=== PATIENT | female | born 1995 | race Caucasian/White ===

== ENCOUNTER 2017-01-18 15:14 | Emergency (ER) | payer BC ==
[~2017-01-18] VITALS: Ht 162.6 cm; Wt 68.7 kg
[2017-01-18 15:21] VITALS: Ht 162.6 cm; Wt 68.7 kg
[2017-01-18] MEDS ORDERED: SODIUM CHLORIDE 0.9% 1000ML 1,000 ML IV STA (15:28)
[2017-01-18] MEDS ORDERED: ONDANSETRON INJ 2 MG/ML 2 ML VIAL IV STA (15:28)
[2017-01-18] MEDS ORDERED: FENTANYL CITRATE INJ 50 MCG/1 ML 2 ML VIAL IV STA ×2 (15:28→16:34)
--- NOTE | 2017-01-18 16:02 | EMERGENCY ROOM VISIT NOTE ---
ED Visit Note First contact with patient: 15:20 CHIEF COMPLAINT: Right Shoulder pain HISTORY OF PRESENT ILLNESS: This 21-year-old female patient presents to the emergency department, S, complaining of pain in the right shoulder. The patient states she was dancing, practicing a routine, when she swung her right arm around, and felt a tearing sensation in her right shoulder. The patient states last year, she was seen by [facility] just diagnosed with a partial tear in her shoulder. She states she went home, and her brother, who is a physician looked at it, but she never followed up with orthopedics. She denies any previous history of shoulder dislocations. The patient reports discomfort in the anterior shoulder, radiating down the arm towards the elbow. She describes the pain as sharp and throbbing, and rates it 7/10. The patient has taken nothing for pain. There is limitation of motion of the arm and shoulder because of the dislocation and pain. The pain is moderate, constant and increases with motion of the hand and arm. No numbness or tingling. No neck or back pain. No chest pain or shortness of breath. No abdominal pain or nausea/vomiting. No cough. REVIEW OF SYSTEMS: A 6 system review of systems was performed with positives and pertinent negatives in the HPI. ALLERGIES: Adhesives MEDICATIONS: Zofran when necessary PMH: Cyclic vomiting syndrome SOCIAL HISTORY: The patient is a [employer]. She lives locally with her remain. The patient denies drug, tobacco use. The patient admits to occasional alcohol use. PHYSICAL EXAM: Vital Signs: Reviewed nurse's notes, vital signs stable. GENERAL : This is a 21-year-old, otherwise healthy female, in no acute distress, but appears to be in pain, well-developed, well-nourished. SKIN: The patient is initially pale, diaphoretic, and cool to the touch. MUSCULOSKELETAL: There is apparent anterior dislocation of the right humeral head. There are otherwise no tesha deformities noted. There is tenderness over the shoulder joint, worse on the anterior aspect. The patient's range of motion is completely limited due to dislocation and pain. Supraspinatus strength 1/5 prereduction. There is no clavicle tenderness. No tenderness of the humerus, elbow, wrist, or hand. Jewelry Setter strength 5/5. Radial pulse 2+. NECK: No tenderness to palpation over the cervical spine. HEART: Regular rate and rhythm without murmurs gallops or rubs. LUNGS: Clear to auscultation bilaterally without wheezes, rales or rhonchi. No accessory muscle use. No retractions. NEURO: The patient is alert and oriented to person, place, and time. Normal sensation to light and sharp touch. Capillary refill less than 2 seconds. RADIOLOGY: X-Ray Right Shoulder: FINDINGS: Right anterior shoulder dislocation. Possible Hill-Sachs impaction fracture. The right clavicle is intact. Soft tissues are unremarkable. No radiopaque foreign bodies. IMPRESSION: Right anterior shoulder dislocation with a possible Hill-Sachs impaction fracture. Post-Reduction X-Ray Right Shoulder: FINDINGS: Status post reduction of the right shoulder dislocation. Alignment is anatomic. The right clavicle is intact. Suspect a small Hill-Sachs impaction fracture. Soft tissues are unremarkable. No radiopaque foreign bodies. IMPRESSION: Status post reduction of the right shoulder dislocation. The alignment is anatomic. Suspect a small Hill-Sachs impaction fracture. EMERGENCY DEPARTMENT COURSE: I examined the patient. The patient was given 1 L normal saline solution, 4mg Zofran, and 50 g of fentanyl via IV. An X-ray of the right shoulder was reviewed by myself and radiologist and shows anterior dislocation of the right shoulder with possible Hill-Sachs impaction fracture. I discussed these findings with the patient at bedside. She was given a repeat dose of fentanyl 50 g IV. The patient was placed in a prone position with her right shoulder hanging off the bed. Her arm was supinated with gentle traction applied. The shoulder did immediately reduce back into place without any difficulty. A postreduction x-ray was ordered. The patient was placed in an arm sling. The patient was feeling significantly better at discharge. She was discharged home in good condition with instructions to follow up with orthopedics on Thursday. DIFFERENTIAL DIAGNOSIS: Shoulder contusion, shoulder separation, shoulder dislocation, rotator cuff tear, and others DIAGNOSIS: Shoulder dislocation DISCHARGE INSTRUCTIONS & TREATMENT: ORTHOPEDIC INSTRUCTIONS: DO NOT drive, drink alcohol, operate machinery, or perform dangerous activities today. You were given medications in the ER that can affect your ability to safely function or operate a vehicle. Oxycodone (OxyIR) 5mg: Take 1-2 pills every four hours as needed for breakthrough pain. Avoid alcohol, operating machinery or dangerous equipment, working on ladders or roofs, DRIVING, or situations where being under the influence may be dangerous. It is recommended to use an kcbw-xfs-dtyfelc stool softener such as Colace, 100mg twice daily while taking this medication to avoid constipation. Ibuprofen(Motrin, Advil) may be used for fever or pain. Use 600mg every six hours as needed. Take with food. Avoid using more than 2400mg in a 24 hour period. Do not use 2400mg per day for more than three consecutive days without physician direction. Prolonged inappropriate use can lead to stomach upset or ulcers. (AND/OR) Acetaminophen(Tylenol) may be used for fever or pain. Use 1000mg every six hours as needed. Avoid using more than 3000mg in a 24 hour period. Ice compresses for 20 minutes at a time four times daily for 2-3 days. Use the sling as instructed. Keep your arm in the sling until you follow-up with orthopedics. Remove your arm from the sling 4-6 times a day and move all the joints around to keep them loose. Rest and elevate your injury. Return to the ER immediately for any numbness, tingling, severe pain, extreme swelling in the extremity or as needed. Call [facility], [phone], on Thursday to arrange follow up for your injury. Follow-up with your primary care physician in 2 to 3 days for a recheck of your current condition. Current/Historical Medications Scheduled PRN Oxycodone Ir (Roxicodone Ir), 1 TAB PO Q4-6H PRN for Pain Allergies Coded Allergies: Adhesives (Verified Allergy, Mild, HIVES, 06/16/15) "i get hives and get itchy" Vital Signs Date Time Temp Pulse Resp B/P (MAP) Pulse Ox O2 Delivery O2 Flow Rate FiO2 01/18/17 18:28 92 14 114/85 97 01/18/17 16:46 01/18/17 16:45 80 131/ 99 Room Air 01/18/17 15:43 73 01/18/17 15:21 115 22 107/80 98 Room Air Medications Administered Medications (Trade) Dose Ordered Sig/Betty Route Start Time Stop Time Status Last Admin Dose Admin Ondansetron HCl (Zofran Inj) 4 mg NOW STAT IV 01/18/17 15:28 01/18/17 15:29 DC 01/18/17 15:39 4 MG Sodium Chloride 1,000 ml @ 999 mls/hr Q1H1M STAT IV 01/18/17 15:28 01/18/17 16:28 DC 01/18/17 15:39 999 MLS/HR Fentanyl Citrate (Fentanyl Inj) 50 mcg NOW STAT IV 01/18/17 15:28 01/18/17 15:29 DC 01/18/17 15:38 50 MCG Fentanyl Citrate (Fentanyl Inj) 50 mcg NOW STAT IV 01/18/17 16:34 01/18/17 16:35 DC 01/18/17 16:44 50 MCG Departure Information Impression Primary Impression: Anterior shoulder dislocation Dispostion Home / Self-Care Condition GOOD Prescriptions Oxycodone Ir (Roxicodone Ir) 5 Mg Tab 1 TAB PO Q4-6H Y for Pain, #12 TAB For Initial Treatment Prov: Gia Brunner PA-C 01/18/17 Referrals [facility] (PCP) Luis Barbosa MD Patient Instructions ED Dislocation Shoulder Redu, My [facility] Additional Instructions ORTHOPEDIC INSTRUCTIONS: DO NOT drive, drink alcohol, operate machinery, or perform dangerous activities today. You were given medications in the ER that can affect your ability to safely function or operate a vehicle. Oxycodone (OxyIR) 5mg: Take 1-2 pills every four hours as needed for breakthrough pain. Avoid alcohol, operating machinery or dangerous equipment, working on ladders or roofs, DRIVING, or situations where being under the influence may be dangerous. It is recommended to use an dyhl-kxn-npuguww stool softener such as Colace, 100mg twice daily while taking this medication to avoid constipation. Ibuprofen(Motrin, Advil) may be used for fever or pain. Use 600mg every six hours as needed. Take with food. Avoid using more than 2400mg in a 24 hour period. Do not use 2400mg per day for more than three consecutive days without physician direction. Prolonged inappropriate use can lead to stomach upset or ulcers. (AND/OR) Acetaminophen(Tylenol) may be used for fever or pain. Use 1000mg every six hours as needed. Avoid using more than 3000mg in a 24 hour period. Ice compresses for 20 minutes at a time four times daily for 2-3 days. Use the sling as instructed. Remove your arm from the sling 4-6 times a day and move all the joints around to keep them loose. Rest and elevate your injury. Return to the ER immediately for any numbness, tingling, severe pain, extreme swelling in the extremity or as needed. Call [facility], [phone], on Thursday to arrange follow up for your injury. Follow-up with your primary care physician in 2 to 3 days for a recheck of your current condition. Problem Qualifiers Primary Impression: Anterior shoulder dislocation Encounter type: initial encounter Laterality: right Qualified Codes: S43.014A - Anterior dislocation of right humerus, initial encounter
--- NOTE | 2017-01-18 16:24 | DIAGNOSTIC IMAGING REPORT ---
RIGHT SHOULDER 2 VIEWS HISTORY: right shoulder pain, possible dislocation Right COMPARISON: None. FINDINGS: Right anterior shoulder dislocation. Possible Hill-Sachs impaction fracture. The right clavicle is intact. Soft tissues are unremarkable. No radiopaque foreign bodies. IMPRESSION: Right anterior shoulder dislocation with a possible Hill-Sachs impaction fracture. Electronically signed by: Mayito Arriaza M.D. 01/18/2017 4:23 PM Dictated Date/Time: 01/18/2017 4:22 PM
[2017-01-18] MEDS ORDERED: OXYC1TAB3 PO (16:55)
--- NOTE | 2017-01-18 17:53 | DIAGNOSTIC IMAGING REPORT ---
RIGHT SHOULDER 2 VIEWS HISTORY: post-reduction Right COMPARISON: Right shoulder 01/18/2017. FINDINGS: Status post reduction of the right shoulder dislocation. Alignment is anatomic. The right clavicle is intact. Suspect a small Hill-Sachs impaction fracture. Soft tissues are unremarkable. No radiopaque foreign bodies. IMPRESSION: Status post reduction of the right shoulder dislocation. The alignment is anatomic. Suspect a small Hill-Sachs impaction fracture. Electronically signed by: Mayito Arriaza M.D. 01/18/2017 5:51 PM Dictated Date/Time: 01/18/2017 5:50 PM
[2017-01-18 18:28] VITALS: BP 114/85; PULSE 92; O2SAT 97
== END 2017-01-18 18:15 | disposition home or self-care (01) ==
LOC: EDBD 15:14 → C.EDA 15:18
DX: S43.014A Anterior dislocation of right humerus, initial encounter (principal); X58.XXXA Exposure to other specified factors, initial encounter; Y93.41 Activity, dancing

== ENCOUNTER → 2017-01-23 | Outpatient (CLI) | payer BC ==
[~2017-01-23] MED LIST: OXYC1TAB3 PO
== END | disposition home or self-care (01) ==
LOC: C.RDSM 13:10
PROVIDERS: ATTEND Physical Medicine & Rehabilitation Sports Medicine
DX: S43.014A Anterior dislocation of right humerus, initial encounter (principal); X58.XXXA Exposure to other specified factors, initial encounter

== ENCOUNTER 2017-03-08 23:00 | Emergency (ER) | payer BC ==
[~2017-03-08] VITALS: Ht 162.6 cm; Wt 58.1 kg
[2017-03-08 23:03] VITALS: TEMP 37; Ht 162.6 cm; Wt 58.1 kg
[2017-03-08] MEDS ORDERED: LORAZEPAM 1 MG TAB SL STA (23:11)
--- NOTE | 2017-03-08 23:33 | EMERGENCY ROOM VISIT NOTE ---
History Report prepared by Scribe: Tayler Bueno Under the Supervision of: Dr. Presley Bullard M.D. First contact with patient: 23:09 Chief Complaint: SHOULDER DISLOCATION Stated Complaint: DISLOCATED RT SHOULDER History of Present Illness The patient is a 21 year old female who presents to the Emergency Room with complaints of dislocated right shoulder occurring 15 minutes ago. The patient states that this is the second time her right shoulder has been dislocated. She notes that she was dancing when she swung her arm and it popped out of socket. The patient states she is nauseous. Source of History: patient Onset: 15 minutes ago Position: shoulder (right) Quality: other (dislocation) Associated Symptoms: + nausea Review of Systems See HPI for pertinent positives and negatives. A total of ten systems were reviewed and were otherwise negative. Family History No pertinent family history stated. Social History Smoking Status: Never Smoker Occupation Status: [employer] Current/Historical Medications No Active Prescriptions or Reported Meds Allergies Coded Allergies: Adhesives (Verified Allergy, Mild, HIVES, 03/08/17) "i get hives and get itchy" Physical Exam Vital Signs Date Time Temp Pulse Resp B/P (MAP) Pulse Ox O2 Delivery O2 Flow Rate FiO2 03/09/17 01:34 78 18 106/66 98 03/09/17 00:41 69 18 107/71 99 Room Air 03/08/17 23:03 37.0 69 18 113/78 99 Room Air Physical Exam GENERAL: Awake, alert, uncomfortable-appearing, in no distress HENT: Normocephalic, atraumatic. Oropharynx unremarkable. EYES: Normal conjunctiva. Sclera non-icteric. NECK: Supple. No nuchal rigidity. FROM. No JVD. RESPIRATORY: Clear to auscultation. CARDIAC: Regular rate, normal rhythm. Extremities warm and well perfused. Pulses equal. ABDOMEN: Soft, non-distended. No tenderness to palpation. No rebound or guarding. No masses. RECTAL: Deferred. MUSCULOSKELETAL: Deformed right shoulder with anterior deformity, axillary nerve intact, distal PMS intact. The back is symmetrical on inspection without obvious abnormality. There is no CVA tenderness to palpation. No joint edema. LOWER EXTREMITIES: Calves are equal size bilaterally and non-tender. No edema. No discoloration. NEURO: Normal sensorium. No sensory or motor deficits noted. SKIN: No rash or jaundice noted. Medical Decision & Procedures ER Provider Diagnostic Interpretation: Radiology results as stated below per my review and radiologist interpretation: Shoulder XRAY: normal alignment Medications Administered Medications (Trade) Dose Ordered Sig/Betty Route Start Time Stop Time Status Last Admin Dose Admin Lorazepam (Ativan Tab) 1 mg NOW STAT SL 03/08/17 23:11 03/08/17 23:12 DC 03/08/17 23:14 1 MG Ondansetron HCl (Zofran Odt) 4 mg ONE ONCE PO 03/08/17 23:45 03/08/17 23:46 DC 03/08/17 23:37 4 MG Procedure Shoulder reduction: Verbal consent obtained after explaining risks and benefits. Pre-treatment with oral dose of ativan. Successful reduction with Link technique with scapular manipulation. Post-procedure axillary n. and distal PMS intact. No complications. Post-reduction xray with normal alignment. ED Course 2311: Ativan Tab SL 2314: The patient was evaluated in room A3. A complete history and physical exam was performed. 2325: Bedside shoulder relocation. 2345: Zofran Odt 4 mg PO. 0124: I reevaluated the patient. Discussed results and discharge instructions: She verbalized understanding and agreement. The patient is ready for discharge. Medical Decision I reviewed the patient's past medical history, medications, and the nursing notes as described above. Differential diagnosis: shoulder dislocation The patient is a 21 y/o woman with a pmhx of prior right shoulder injury and prior right shoulder dislocation presents to the ED with right shoulder deformity c/w anterior dislocation when waving her arm when performing a dance routine per HPI. On arrival the patient is well appearing, in NAD, AFVSS. Axillary nerve intact and distal pms intact. Shoulder successfully reduced with Link technique with scapluar manipulation. Post reduction film with normal alignment. Findings and plan for follow-up reviewed with patient. Patient agreeable and d/c'd per discharge instructions. Medication Reconcilliation Current Medication List: was personally reviewed by me Blood Pressure Screening Patient's blood pressure: Normal blood pressure Impression Primary Impression: Anterior shoulder dislocation Scribe Attestation The scribe's documentation has been prepared under my direction and personally reviewed by me in its entirety. I confirm that the note above accurately reflects all work, treatment, procedures, and medical decision making performed by me. Departure Information Dispostion Home / Self-Care Prescriptions No Active Prescriptions or Reported Meds Referrals No Doctor, Assigned (PCP) Forms HOME CARE DOCUMENTATION FORM, IMPORTANT VISIT INFORMATION, WORK / SCHOOL INSTRUCTIONS Patient Instructions ED Dislocation Shoulder Redu, ED Sling and Bernard, My [facility] Additional Instructions Please follow up with your orthopedist for re-evaluation within the next week. You had a shoulder dislocation that was successfully reduced and in good position on xray afterwards. Sling as directed. Return to the emergency department for worsening symptoms as described in the accompanying instructions.
[2017-03-08] MEDS ORDERED: ONDANSETRON 4MG OD TAB PO ONE (23:45)
[2017-03-09 01:34] VITALS: BP 106/66; PULSE 78; O2SAT 98
--- NOTE | 2017-03-09 06:37 | DIAGNOSTIC IMAGING REPORT ---
R SHOULDER MIN 2 VIEWS ROUTINE HISTORY: 21 years-old Female s/p dislocation reduction. Add axillary view. Acute right shoulder pain status post dislocation COMPARISON: Right shoulder radiographs 01/23/2017 and 01/18/2017 TECHNIQUE: 4 views of the right shoulder FINDINGS: Small likely subacute Hill Sacks deformity appears unchanged. There is no acute fracture, dislocation or intra-articular loose body identified. Soft tissues are unremarkable. IMPRESSION: 1. No acute fracture or dislocation. The above report was generated using voice recognition software. It may contain grammatical, syntax or spelling errors. Electronically signed by: Jefferson Black M.D. 03/09/2017 6:36 AM Dictated Date/Time: 03/09/2017 6:33 AM
== END 2017-03-09 01:34 | disposition home or self-care (01) ==
LOC: C.EDB 23:01 → C.EDA 03-09 01:34
DX: S43.004A Unspecified dislocation of right shoulder joint, initial encounter (principal); X50.9XXA Other and unspecified overexertion or strenuous movements or postures, initial encounter; Y93.41 Activity, dancing